=== PATIENT | male | born 1975 | race American Indian/Alaskan Native ===

== ENCOUNTER 2018-01-16 09:59 | Emergency (ER) | payer SELFPAY ==
--- NOTE | 2018-01-16 11:23 | C.PDOC ---
History Of Present Illness 42 y/o male presents to the ER complaining of right lower back pain, exacerbated by a fall 5 days ago. States he slipped on a banana peel, causing him to fall backwards. No head trauma or LOC. Took ibuprofen with no improvement. Additionally, patient is complaining of dental pain and believes he has had a cavity for awhile. Patient has had this pain intermittently but today it is worse. Has not seen a dentist. Denies any fever, chills, nausea, vomiting, headache, or neck stiffness. PMD: None Time Seen by Provider: 01/16/18 10:17 Chief Complaint (Nursing): Dental Pain History Per: Patient, Guest Relation Officer (#[id number]) History/Exam Limitations: no limitations Onset/Duration Of Symptoms: Intermittent Episodes Current Symptoms Are (Timing): Still Present Past Medical History Reviewed: Historical Data, Nursing Documentation, Vital Signs Vital Signs: Last Vital Signs Temp 98.6 F 01/16/18 10:10 Pulse 106 H 01/16/18 10:10 Resp 16 01/16/18 10:10 BP 111/78 01/16/18 10:10 Pulse Ox 98 01/16/18 11:30 - Medical History PMH: No Chronic Diseases Family History: States: No Known Family Hx - Social History Hx Alcohol Use: No Hx Substance Use: No - Immunization History Hx Influenza Vaccination: No Review Of Systems Except As Marked, All Systems Reviewed And Found Negative. Constitutional: Negative for: Fever, Chills ENT: Positive for: Other (Dental Pain) Gastrointestinal: Negative for: Nausea, Vomiting Musculoskeletal: Positive for: Back Pain (right lower). Negative for: Neck Pain (or stiffness) Neurological: Negative for: Headache Physical Exam - Physical Exam Appears: Non-toxic, No Acute Distress, Other (Appears thin, frail) Skin: Normal Color, Warm, Dry Head: Atraumatic, Normacephalic Eye(s): bilateral: Normal Inspection, PERRL, EOMI Oral Mucosa: Moist Tongue: Normal Appearing Teeth: No Normal Dentition, Other (Poor dentition. Right upper molars with significant dental decay, no abscess formation) Gingiva: Normal Appearing, No Swelling, No Abscess Neck: Normal (non-tender), Normal ROM, Supple Chest: Symmetrical Cardiovascular: Rhythm Regular Respiratory: Normal Breath Sounds, No Accessory Muscle Use Back: Normal Inspection, No CVA Tenderness, No Vertebral Tenderness, No Paraspinal Tenderness Extremity: Bilateral: Atraumatic, Normal Color And Temperature, Normal ROM Neurological/Psych: Oriented x3, Normal Speech ED Course And Treatment O2 Sat by Pulse Oximetry: 98 (RA) Pulse Ox Interpretation: Normal Medical Decision Making Medical Decision Making: Time: 11:22 Initial Plan: * Motrin 600 mg PO * Tylenol 975 mg PO * Tramadol 50 mg PO * Penicillin 1000 mg PO Counseled patient regarding diagnosis and the need to establish follow up with a primary doctor and dentist. Patient is stable for discharge home. Will d/c with Rx for antibiotics. Return precautions discussed. Disposition Counseled Patient/Family Regarding: Diagnosis, Need For Followup, Rx Given - Disposition Referrals: [facility] [Outside] Disposition: HOME/ ROUTINE Disposition Time: 11:53 Condition: STABLE Additional Instructions: Follow up in clinic and with a dentist Prescriptions: Penicillin VK [Penicillin VK Tab] 500 mg PO Q6H #40 tab traMADol/Acetaminophen [Ultracet 37.5/325 mg] 1 tab PO TID PRN #20 tab PRN Reason: pain Instructions: Dental Pain (DC) Forms: General Discharge Instructions - POA Present On Arrival: None - Clinical Impression Clinical Impression: Dental caries - Scribe Statement The provider has reviewed the documentation as recorded by the Gail Ribeiro Provider Attestation: All medical record entries made by the Gail were at my direction and personally dictated by me. I have reviewed the chart and agree that the record accurately reflects my personal performance of the history, physical exam, medical decision making, and the department course for this patient. I have also personally directed, reviewed, and agree with the discharge instructions and disposition.
[2018-01-16 12:00] VITALS: BP 132/87; PULSE 92; RESP 20; TEMP 98.4; O2SAT 99
== END 2018-01-16 12:01 | disposition home or self-care (01) ==
LOC: C.ER 09:59
DX: K02.9 Dental caries, unspecified (principal)